=== PATIENT | female | born 1995 | race Caucasian/White ===

== ENCOUNTER 2017-07-17 00:47 | Emergency (ER) | payer OTHER, BC ==
[~2017-07-17] VITALS: Ht 162.6 cm; Wt 65.8 kg
[2017-07-17] MEDS ORDERED: IBUPROFEN600 MG PO (04:18)
== END 2017-07-17 04:35 | disposition home or self-care (01) ==
LOC: ED 00:47
DX: S39.012A Strain of muscle, fascia and tendon of lower back, initial encounter (principal); Z91.018 Allergy to other foods; V49.59XA Passenger injured in collision with other motor vehicles in traffic accident, initial encounter
CPT/HCPCS: 71046; 72040; 72100; 99283